=== PATIENT | female | born 1980 | race Hispanic/Latino ===

== ENCOUNTER 2017-12-28 09:46 | Inpatient (IN) | payer BC, SELFPAY ==
[2017-12-23 08:46] VITALS: BP 152/88; PULSE 89; RESP 16; TEMP 36.9; O2SAT 98; BMI 42.0
--- NOTE | 2017-12-23 09:18 | SDCEKG_ITS ---
Test Reason : Blood Pressure : / mmHG Vent. Rate : 083 BPM Atrial Rate : 083 BPM P-R Int : 156 ms QRS Dur : 086 ms QT Int : 348 ms P-R-T Axes : 042 077 039 degrees QTc Int : 408 ms Normal sinus rhythm Normal ECG Confirmed by ANDRÉS ORDONEZ ([id number]), magazine editor SILVANA SERVIN ([id number]) on 12/26/2017 2:16:12 PM Referred By: Jason Cruz Confirmed By:ANDRÉS ORDONEZ
[2017-12-23 10:10] LABS: Anion Gap 7 (5-15); BUN 15 mg/dL (7-18); BUN/Creat Ratio 22.3 RATIO (10-20); Calcium,Total 8.1 mg/dL (8.5-10.1); Chloride 105 mmol/L (98-107); Creatinine, Serum 0.67 mg/dL (0.55-1.02); EST Glomerular Filtration Rate 103 mL/min (>60); Est Glom Filt Rate - Afr Amer 125 mL/min (>60); Estimated Creatinine Clearance 93.25 ml/min; Glucose 79 mg/dL (74-106); Potassium 3.6 mmol/L (3.5-5.1); Sodium Level 138 mmol/L (136-145)
[2017-12-28] VITALS (8 sets, daily range): BP systolic 135–168; BP diastolic 70–108; PULSE 65–95; RESP 16–18; TEMP 36.4–37.4; O2SAT 92–98; BMI 42.0
--- NOTE | 2017-12-28 | SYN_PTH ---
PATIENT: KOLTON MORENO LOC: [facility]3 U#:[id number] AGE/SX: 37/F ROOM: GA322 RE12/28/[address]: Dr. Jason Cruz MD : 1980 BED: 1 DIS: 12/29/2017 SPEC #: [id number] RECD: 12/28/17 15:16 STATUS: HOMERO REBebeto #: [id number] JONATAN: 12/28/17 00:[address]: Jason Cruz DEPT: SURGICAL PATHOLOGY RECD BY: Jarret Mora ENTERED: 12/29/17 12:30 SP TYPE: SYNOVIUM DARI DR: MD Dr. Bandar Charles MD Tissues: Synovial tissue of joint, NOS Procedures: Surgery Specimen Level IV HEADER OPERATION: Right knee revision unicompartmental to total knee replacement PRE-OP DIAGNOSIS: Presence of right artificial knee, displaced fracture of medial condyle of right tibia TISSUE SUBMITTED: Right knee synovium MICROSCOPIC DIAGNOSIS Right knee synovium, and right knee revision: A fragment of fibroadipose tissue, skeletal muscle tissue, synovial tissue with chronic inflammation, histiocytic lesion, foreign body giant cell reaction, and calcifications. SHANIQUA:miguel 12/30/17 MICROSCOPIC DESCRIPTION Slides are reviewed. GROSS DESCRIPTION Received in fixative is one container labeled with the patient's name and designated synovium right knee. The specimen consists of an irregular fragment of jimenez-yellow soft tissue measuring 3.5 x 2 x 1.5 cm. Serial sections do not reveal mass lesions. Industrial Safety And Health Manager sections are submitted in 1 cassette. /AM:miguel 12/29/17 TC: 5 CPT:28977
[2017-12-28] MEDS: oxyCODONE HCl Cr 10 MG Tablet PO (10:23)
[2017-12-28] MEDS: Celecoxib 200 MG Capsule 400 MG PO (10:23)
[2017-12-28] MEDS: Acetaminophen 500 MG Tablet 1000 MG PO ×2 (10:23→21:10)
[2017-12-28] MEDS: Lactated Ringers 1,000 ML 999 ML IV ×2 (10:50→14:50)
[2017-12-28] MEDS: Scopolamine 1mg/72hr Patch 1 PATCH TD (11:10)
--- NOTE | 2017-12-28 11:45 | RAD_ITS ---
STUDY: X-RAY - RIGHT KNEE REASON FOR EXAM: Female, 37 years old. Postop knee replacement. TECHNIQUE: 2 view(s) of the knee. COMPARISON: None. Findings: There is a recent total knee arthroplasty. The femoral and tibial components appear in satisfactory position. The visualized femoral, tibial, and fibular shafts are unremarkable. There is soft tissue air consistent with the recent surgery. RAD/Knee 1 or 2 Views IMPRESSION: Satisfactory appearance of a total knee arthroplasty. Electronically Signed: Christophe Rome MD at 17:45 EST , Service support ,
[2017-12-28] MEDS: Cefazolin 2 GM in 0.9% Normal Saline 100 ML IV (11:49)
--- NOTE | 2017-12-28 14:20 | PCM.OPRPT ---
Report of Operation Date of Procedure: 12/28/17 Pre-Operative Diagnosis: FAILED right partial knee replacement. Medial tibial plateau fracture right knee Post-Operative Diagnosis: FAILED right partial knee replacement. Medial tibial plateau fracture right knee Surgery/Procedure Performed:: Revision right total knee replacement entire tibial and femoral component. ORIF right medial tibial plateau Description of Surgical Findings:: Well reduced medial tibial plateau fracture, stable knee with good patella tracking. Patella had good cartilage remaining and based on patient's age I elected to not resurface the patella. accounting file clerk: Ayad Vicente Type of Anesthesia:: Spinal Anesthesiologist: Hi Downs Special Medications: 2 g Ancef, 1 g TXA at incision, 1 g TXA closure, 10 mg Decadron, joint cocktail (5 mg Duramorph, 30 mL of 0.5% Ropivicaine, 1000 units of epinephrine, 30 mg of Toradol) Specimen's removed: 3 separate specimens were sent micrology Estimated Blood Loss (mL): 100 ml Fluids Replaced: 4000 mL crystalloid Description of Procedure: Implants used: 1. [place] posterior stabilized triathlon size 4 right distal femoral component 2. Tanner triathlon universal tibial baseplate size 4 with 12 x 50 mm stem and 5 mm augment medially 3. Tanner triathlon posterior stabilized X3 polyethylene 16 mm Brief history operative indications: 37-year-old female who had partial knee replacement 2 years ago. She had progressive pain over the summer with negative x-rays in May. She continued to have pain and swelling. She eventually presented to the emergency department where she noted to have a medial tibial plateau fracture and loosening of the tibial implant. She presented to my office with continued pain and inability to bear weight. At that point we discussed revision knee replacement including risks which include but were not limited to blood loss, DVTs, PEs, neurovascular damage, infection, the risk of anesthesia including loss of life. We also discussed high probability of multiple revisions in the future based on her age. Patient demonstrated understanding was able to sign informed consent. Procedure: On the date of procedure patient's right lower extremity was marked in the preoperative area. The patient was then taken back to the operating room where the patient was placed on the table in the supine position. All bony prominences were identified a well-padded. Anesthesia assumed control of the C-spine and airway and remained controlled throughout the remainder of the procedure. A tourniquet was placed on the right upper thigh and the leg was prepped in a sterile fashion. The surgeon then scrubbed at this time .Upon reentering the room right lower extremity was draped in a standard orthopedic fashion. A timeout was then called and everyone agreed upon the side, the site, the procedure to be performed, patient's identity and antibiotics given. An Esmarch bandage was used to exsanguinate the extremity and the tourniquet was placed up to 250 mmHg with the knee in flexion. A midline skin incision was made and sharp dissection was taken down through skin subcutaneous tissue and fat. The standard medial parapatellar incision was made and the patella was subluxed laterally. The standard deep MCL release was done and the fat pad was resected. At this time it was noted that the tibial plateau significantly displaced and the tibial component was loosened from the main shaft fragment of bone. We elected to proceed with an aggressive synovectomy based on the patient's synovitis from her rheumatoid disease. Suprapatellar synovium was sent for culture. Once the aggressive synovectomy was completed including the suprapatellar pouch medial lateral gutters we directed our attention to the reconstruction of the knee. Navigation pins were placed, navigation was registered on the femur with the goal of helping us with rotation after the femoral component was removed. Next our attention was directed to the femur where the distal femoral cutting block was pinned into place and 10 mm of distal femur resection was completed using the navigation for guide. The initial cut was made on the lateral condyle and around the femoral implant medially. We then used a osteotome to remove the distal femoral implant medially and finished our cut freshening it up. The knee was then placed in deep flexion in the standard [employer] rotation guide with navigation was used to pin the 4-in-[address]. A size 4 4-in-1 cutting block was selected. The anterior cut was then made and checked for notching. The subsequent anterior chamfer cuts, posterior condylar cuts and posterior chamfer cuts were made while ensuring the MCL and LCL were protected. Our attention was then turned to the tibia where the tibial component was removed from the medial tibial plateau fracture. Pointed reduction clamps were used to reduce the medial tibial plateau fracture. At this time to guidewires were placed and cannulated screws were placed in a trajectory which was anticipated to be around the tibial keel for the future tibial component. This adequately compress the fracture. At this time the extra medullary medullary tibial cutting guide was used to make the appropriate tibial cut 90 degrees from the mechanical axis. Based on the bone loss from the partial knee replacement a 5 mm augment was also planned medially this gave us a cleanup cut on the medial bone. A drop jose was then used to verify the cut. A size 4 tibial base plate was selected. the knee was flexed to 90 degrees and the soft tissues and posterior osteophytes were removed from the joint. The first portion of the articular injection was then administered in the posterior medial knee. Our attention was then turned back to the femur where the notch cutting guide was impacted in the appropriate position, and pinned into place. The chisel and saw were then used to complete the notch cut. Rogeur was used to remove any residual osteophytes. The appropriate trials were then placed on the femur and tibia. A trial polyethylene was trialed to ensure proper balancing and stability of the knee. Patella tracking, was then verified and corrected appropriately as needed. The appropriate tibial internal rotation was then marked with a bovie. Our attention was then directed to the patella. The patella was everted and found to have healthy bone. Based on the patient's young age of 37 years and good remaining cartilage as well as her x-rays that showed good joint space and patellofemoral joint elected to not resurface the patella. Patellar tracking was checked and deemed appropriate. Once we were happy lug holes were drilled for the femur and trial components were removed. the tibia was subluxed and pinned into place and the keel was punched and the canal was reamed. Final components were verified and opened, and cement was mixed in a vacuum. ThoughtSpot Simplex cement was used. The wound was copiously irrigated with normal saline, 6 L under low-pressure lavage. When the cement was ready the components were cemented into place starting with the tibia, femur and finally the patella. The trial poly component was placed and the knee was placed in full extension. All excess cement was removed in the process. Once the cement had cured the tracking, alignment and balance were verified and a size 16 polyethylene component was placed. Once the final components were placed the wound was copiously irrigated with normal saline solution and the remainder of the periarticular injection was given. The wound was closed in a layer vidal fashion using #1 vicryl interrupted sutures for the arthrotomy, 2-0 interrupted Vicryl for the subcuticular layer and te for final skin closure. A sterile compressive dressing was then placed. The patient was then awakened from anesthesia, transferred to the [facility] and transferred to the PACU for recovery. Post op plan DVT ppx: ASA 81mg BID, thigh high compression stockings Follow up: in office in 2 weeks for wound check PT: to start POD #0 at hospital, outpatient PT should be arranged. My physician learning and development assistant was a vital part of this case. He was important in appropriate retraction during the case, and protection of soft tissues during bony cuts. His intimate knowledge of the case and my steps aided in safe and expedient completion of the procedure as well as appropriate position of the leg during the case. He was also vital in assisting with closure under my direct supervision. Grafts/Implants Used: Tanner triathlon posterior stabilized - Complications None - Admit VTE Documentation VTE Present on Admission: No VTE Mechan Device Prophylaxis: SCD's, Thigh High SERENITY Hose VTE Pharm Prophylaxis ordered?: Yes
--- NOTE | 2017-12-28 14:33 | OP.PCM_ITS ---
Report of Operation Date of Procedure: 12/28/17 Pre-Operative Diagnosis: FAILED right partial knee replacement. Medial tibial plateau fracture right knee Post-Operative Diagnosis: FAILED right partial knee replacement. Medial tibial plateau fracture right knee Surgery/Procedure Performed:: Revision right total knee replacement entire tibial and femoral component. ORIF right medial tibial plateau Description of Surgical Findings:: Well reduced medial tibial plateau fracture, stable knee with good patella tracking. Patella had good cartilage remaining and based on patient's age I elected to not resurface the patella. school psychological examiner: Ayad Vicente Type of Anesthesia:: Spinal Anesthesiologist: Hi [employer]s Special Medications: 2 g Ancef, 1 g TXA at incision, 1 g TXA closure, 10 mg Decadron, joint cocktail (5 mg Duramorph, 30 mL of 0.5% Ropivicaine, 1000 units of epinephrine, 30 mg of Toradol) Specimen's removed: 3 separate specimens were sent micrology Estimated Blood Loss (mL): 100 ml Fluids Replaced: 4000 mL crystalloid Description of Procedure: Implants used: 1. [place] posterior stabilized triathlon size 4 right distal femoral component 2. Tanner triathlon universal tibial baseplate size 4 with 12 x 50 mm stem and 5 mm augment medially 3. Tanner triathlon posterior stabilized X3 polyethylene 16 mm Brief history operative indications: 37-year-old female who had partial knee replacement 2 years ago. She had pro gressive pain over the summer with negative x-rays in May. She continued to have pain and swelling. She eventually presented to the emergency department where she noted to have a medial tibial plateau fracture and loosening of the tibial implant. She presented to my office with continued pain and inability to bear weight. At that point we discussed revision knee replacement including risks which include but were not limited to blood loss, DVTs, PEs, neurovascular damage, infection, the risk of anesthesia including loss of life. We also discussed high probability of multiple revisions in the future based on her age. Patient demonstrated understanding was able to sign informed consent. Procedure: On the date of procedure patient's right lower extremity was marked in the preoperative area. The patient was then taken back to the operating room where the patient was placed on the table in the supine position. All bony prominences were identified a well-padded. Anesthesia assumed control of the C-spine and airway and remained controlled throughout the remainder of the procedure. A tourniquet was placed on the right upper thigh and the leg was prepped in a sterile fashion. The surgeon then scrubbed at this time .Upon reentering the room right lower extremity was draped in a standard orthopedic fashion. A timeout was then called and everyone agreed upon the side, the site, the procedure to be performed, patient's identity and antibiotics given. An Esmarch bandage was used to exsanguinate the extremity and the tourniquet was placed up to 250 mmHg with the knee in flexion. A midline skin incision was made and sharp dissection was taken down through skin subcutaneous tissue and fat. The standard medial parapatellar incision was made and the patella was subluxed laterally. The standard deep MCL release was done and the fat pad was resected. At this time it was noted that the tibial plateau significantly displaced and the tibial component was loosened from the main shaft fragment of bone. We elected to proceed with an aggressive synovectomy based on the patient's synovitis from her rheumatoid disease. Suprapatellar synovium was sent for culture. Once the aggressive synovectomy was completed including the suprapatellar pouch medial lateral gutters we directed our attention to the reconstruction of the knee. Navigation pins were placed, navigation was registered on the femur with the goal of helping us with rotation after the femoral component was removed. Next our attention was directed to the femur where the distal femoral cutting block was pinned into place and 10 mm of distal femur resection was completed using the navigation for guide. The initial cut was made on the lateral condyle and around the femoral implant medially. We then used a osteotome to remove the distal femoral implant medially and finished our cut freshening it up. The knee was then placed in deep flexion in the standard [employer] rotation guide with navigation was used to pin the 4-in-[address]. A size 4 4-in-1 cutting block was selected. The anterior cut was then made and checked for notching. The subsequent anterior chamfer cuts, posterior condylar cuts and posterior chamfer cuts were made while ensuring the MCL and LCL were protected. Our attention was then turned to the tibia where the tibial component was removed from the medial tibial plateau fracture. Pointed reduction clamps were used to reduce the medial tibial plateau fracture. At this time to guidewires were placed and cannulated screws were placed in a trajectory which was antici pated to be around the tibial keel for the future tibial component. This adequately compress the fracture. At this time the extra medullary medullary tibial cutting guide was used to make the appropriate tibial cut 90 degrees from the mechanical axis. Based on the bone loss from the partial knee replacement a 5 mm augment was also planned medially this gave us a cleanup cut on the medial bone. A drop jose was then used to verify the cut. A size 4 tibial base plate was selected. the knee was flexed to 90 degrees and the soft tissues and posterior osteophytes were removed from the joint. The first portion of the articular injection was then administered in the posterior medial knee. Our attention was then turned back to the femur where the notch cutting guide was impacted in the appropriate position, and pinned into place. The chisel and saw were then used to complete the notch cut. Rogeur was used to remove any residual osteophytes. The appropriate trials were then placed on the femur and tibia. A trial polyethylene was trialed to ensure proper balancing and stability of the knee. Patella tracking, was then verified and corrected appropriately as needed. The appropriate tibial internal rotation was then marked with a bovie. Our attention was then directed to the patella. The patella was everted and found to have healthy bone. Based on the patient's young age of 37 years and good remaining cartilage as well as her x-rays that showed good joint space and patellofemoral joint elected to not resurface the patella. Patellar tracking was checked and deemed appropriate. Once we were happy lug holes were drilled for the femur and trial components were removed. the tibia was subluxed and pinned into place and the keel was punched and the canal was reamed. Final components were verified and opened, and cement was mixed in a vacuum. [employer] Simplex cement was used. The wound was copiously irrigated with normal saline, 6 L under low-pressure lavage. When the cement was ready the components were cemented into place starting with the tibia, femur and finally the patella. The trial poly component was placed and the knee was placed in full extension. All excess cement was removed in the process. Once the cement had cured the tracking, alignment and balance were verified and a size 16 polyethylene component was placed. Once the final components were placed the wound was copiously irrigated with normal saline solution and the remainder of the periarticular injection was given. The wound was closed in a layer vidal fashion using #1 vicryl interrupted sutures for the arthrotomy, 2-0 interrupted Vicryl for the subcuticular layer and te for final skin closure. A sterile compressive dressing was then placed. The patient was then awakened from anesthesia, transferred to the [facility] and transferred to the PACU for recovery. Post op plan DVT ppx: ASA 81mg BID, thigh high compression stockings Follow up: in office in 2 weeks for wound check PT: to start POD #0 at hospital, outpatient PT should be arranged. My physician communication assistant was a vital part of this case. He was important in appropriate retraction during the case, and protection of soft tissues during bony cuts. His intimate knowledge of the case and my steps aided in safe and expedient completion of the procedure as well as appropriate position of the leg during the case. He was also vital in assisting with closure under my direct supervision. Grafts/Implants Used: Tanner triathlon posterior stabilized - Complications None - Admit VTE Documentation VTE Present on Admission: No VTE Mechan Device Prophylaxis: SCD's, Thigh High SERENITY Hose VTE Pharm Prophylaxis ordered?: Yes
--- NOTE | 2017-12-28 16:34 | PCM.PROGNOTE ---
<Christiana Alejandre - Last Filed: 12/28/17 16:52> Subjective: Patient seen and examined. Working with physical therapy. Denies significant pain. No other current complaints. Hospitalist consulted for medical management. Patient reports a medical history of lupus. Denies other chronic medical history. - Physical Exam General: Alert, Oriented x3, Cooperative HEENT: Atraumatic, PERRLA, EOMI, Normocephalic Neck: Supple, No JVD, Negative Carotid Bruits Lungs: Clear to auscultation, Normal air movement Cardiovascular: Regular rate, Regular Rhythm, Normal S1, Normal S2, No murmurs Abdomen: Bowel Sounds Present, Soft, Non Tender, Non-Distended, Obese Extremities: No clubbing, No cyanosis, No edema, Capillary Refill Less than 3 Seconds Skin: No rashes, No breakdown, - - Right knee post-op dressing intact. Musculoskeletal: Tenderness - Right knee Neurological: Cranial nerves II-XII grossly intact, Neuro grossly intact Psych/Mental Status: Normal Affect, Appropriate Vital Signs Temp Pulse Resp BP Pulse Ox 98.2 F 95 18 149/79 H 95 12/28/17 16:07 12/28/17 16:07 12/28/17 16:07 12/28/17 16:07 12/28/17 16:07 Oxygen Flow Rate (L/min) 2 Oxygen Delivery Method Room Air Weight: 240 lb Body Mass Index (BMI) 42.0 Intake and Output for Last 24 Hours 12/26/17 12/27/17 12/28/17 23:59 23:59 23:59 Intake Total 3700 / 3700 Balance 3700 / 3700 Medical Necessity - Tobacco Use Smoking Status: Current every day smoker Assessment/Plan 1. Status post revision right total knee replacement/ORIF right medial tibial plateau-management per ortho. PRN pain regimen. Knee tissue pathology pending. PT/OT. 2. Elevated blood pressure- could be due to pain, 2/2 #1. PRN hydralazine for SBP >160. Add oral agent if BP remains elevated. 3. Lupus- continue home medications. 4. Obesity-encourage diet lifestyle modifications. DVT prophylaxis-aspirin 81 mg twice daily. This patient was seen by DARWIN Jones under the supervision of Dr. Uriostegui. <Agnieszka Uriostegui - Last Filed: 12/28/17 17:24> - Physical Exam Vital Signs Temp Pulse Resp BP Pulse Ox 98.2 F 95 18 149/79 H 95 12/28/17 16:07 12/28/17 16:07 12/28/17 16:07 12/28/17 16:07 12/28/17 16:07 Oxygen Flow Rate (L/min) 2 Oxygen Delivery Method Room Air Weight: 108.862 kg Body Mass Index (BMI) 42.0 Intake and Output for Last 24 Hours 12/26/17 12/27/17 12/28/17 23:59 23:59 23:59 Intake Total 3700 / 3700 Balance 3700 / 3700 Assessment/Plan This patient was seen in conjunction with Christiana Alejandre NP. I have independently interviewed and examined the patient and reviewed pertinent historical, laboratory, and other data. Please refer to her note for patient's presentation, findings, and recommendations. 37-year-old female with past medical history of SLE, follows up with spin table operator in the outpatient, history of right knee replacement comes in for a revision of the right knee. Patient is postop day #0 status post procedure. Her pain is now well controlled at the moment. She is due for pain medications. She otherwise denies any fever or chills or dizziness or chest pain or shortness of breath. Physical Exam: Vitals were reviewed -blood pressure slightly uncontrolled Gen: Looks in some discomfort, not pale, not jaundiced, alert oriented x3, sitting up in the chair CVS:HS I +II, regular, no murmurs RESP: Clinically clear to auscultation GI:BS present, soft, nontender, palpable organs EXT: Cooling mat over the right knee Labs reviewed: ASSESSMENT: 1. Postop day #0 status post revision of right total knee replacement 2. Elevated blood pressure likely secondary to uncontrolled pain 3. SLE 4. Obesity, diet and exercises recommended Meds reviewed Plan: Continue per orthopedic recommendations, Pain control Monitor blood pressure for now PRN hydralazine DVT prophylaxis per orthopedics recommendations Code Visit Inpatient E&M: 24190 Init Hosp L2
[2017-12-28] MEDS: Aspirin 81 MG TAB.CHEW PO (17:05)
[2017-12-28] MEDS: Gabapentin 100 MG Capsule 200 MG PO (17:05)
[2017-12-28] MEDS: Gabapentin 300 MG Capsule PO (17:05)
[2017-12-28] MEDS: oxyCODONE 5 MG Tablet PO ×2 (18:08→22:49)
[2017-12-28] MEDS: Cefazolin 1 GM/50 ML BAG IV (20:08)
[2017-12-28] MEDS: Mycophenolate Mofetil 250 MG Capsule 1000 MG PO (21:10)
[2017-12-28] MEDS: Senna/Docusate Sodium 1 Tablet 2 TABLET PO (21:10)
[2017-12-28] MEDS: Doxycycline 100 MG CAPSULE PO (21:10)
[2017-12-29 02:00] VITALS: BP 136/85; PULSE 87; RESP 18; TEMP 36.4; O2SAT 96
[2017-12-29] MEDS: oxyCODONE 5 MG Tablet PO ×4 (02:36→16:36)
[2017-12-29] MEDS: Cefazolin 1 GM/50 ML BAG IV (04:31)
[2017-12-29] MEDS: Ondansetron 4 MG/2 ML Vial IV (05:14)
[2017-12-29 06:26] LABS: Hematocrit 34.9 % (37-47); Hemoglobin 11.2 g/dl (12.0-15.0); Mean Corp Hgb Conc 32.1 g/gl (32-36); Mean Corpuscular Hgb 31.5 pg (27.0-32.0); Mean Corpuscular Volume 98.3 fL (81-99); Mean Platelet Vol. 8.9 fl (6.2-12.0); Platelet Count 270 K/mm3 (150-450); RBC Distribution Width CV 12.8 % (11.6-14.6); RBC Distribution Width SD 44.9 fl (35.1-43.9); Red Blood Count 3.55 M/mm3 (4.2-5.4); White Blood Count 13.4 K/mm3 (4.4-11.0)
[2017-12-29 06:29] LABS: Scan Indicated on CBC? Y/N NO
[2017-12-29] MEDS: Acetaminophen 500 MG Tablet 1000 MG PO ×2 (06:33→14:24)
[2017-12-29 06:34] LABS: Anion Gap 10 (5-15); BUN 11 mg/dL (7-18); BUN/Creat Ratio 16.8 RATIO (10-20); Calcium,Total 7.8 mg/dL (8.5-10.1); Chloride 108 mmol/L (98-107); Creatinine, Serum 0.65 mg/dL (0.55-1.02); EST Glomerular Filtration Rate 107 mL/min (>60); Est Glom Filt Rate - Afr Amer 129 mL/min (>60); Estimated Creatinine Clearance 96.12 ml/min; Glucose 96 mg/dL (74-106); Potassium 3.9 mmol/L (3.5-5.1); Sodium Level 142 mmol/L (136-145)
[2017-12-29 07:50] VITALS: O2SAT 95
[2017-12-29 08:20] VITALS: BP 143/75; PULSE 96; RESP 18; TEMP 37.2; O2SAT 94
[2017-12-29] MEDS: Mycophenolate Mofetil 250 MG Capsule 1000 MG PO (08:32)
[2017-12-29] MEDS: Morphine 2 MG/ML Syringe IV (08:32)
[2017-12-29] MEDS: Senna/Docusate Sodium 1 Tablet 2 TABLET PO (08:33)
[2017-12-29] MEDS: Gabapentin 100 MG Capsule 200 MG PO ×2 (08:33→16:37)
[2017-12-29] MEDS: Doxycycline 100 MG CAPSULE PO (08:34)
[2017-12-29] MEDS: Gabapentin 300 MG Capsule PO ×2 (08:34→16:37)
[2017-12-29] MEDS: Aspirin 81 MG TAB.CHEW PO ×2 (08:34→16:38)
[2017-12-29] MEDS: Famotidine 20 MG Tablet PO (08:34)
--- NOTE | 2017-12-29 09:40 | PCM.PN.ORT ---
Subjective: The patient was sitting in bedside chair upon examination. Patient denies any chest pain, shortness of breath, dizziness, lightheadedness, nausea or vomiting, or calf pain. Patient states the pain medications are given her relief for approximately 1 hour. No adverse overnight events. Patient is wishing to go home today. We will adjust pain medications and if pain is controlled and plan will be for possible discharge home today.. Objective: Vital signs stable and afebrile. Patient is able to plantarflex and dorsiflex actively. Sensation is intact to light touch to saphenous, sural, superficial and deep peroneal, and tibial distribution. Dressings is clean dry and intact. Negative Homans bilaterally, negative signs and symptoms of DVT. - Physical Exam General: Alert, Oriented x3, Cooperative, No apparent distress Vital Signs Temp Pulse Resp BP Pulse Ox 98.9 F 96 18 143/75 H 94 12/29/17 08:20 12/29/17 08:20 12/29/17 08:20 12/29/17 08:20 12/29/17 08:20 Oxygen Flow Rate (L/min) 2 Oxygen Delivery Method Room Air Weight: 108.862 kg Body Mass Index (BMI) 42.0 Intake and Output for Last 24 Hours 12/27/17 12/28/17 12/29/17 23:59 23:59 23:59 Intake Total 4450 / 4450 1460 / 1460 Output Total 2 / 2 Balance 4448 / 4448 1460 / 1460 Microbiology Past 72 Hours 12/28/17 Unknown Gram Stain - Final Tissue - Knee 12/28/17 Unknown Gram Stain - Final Tissue - Knee 12/28/17 Unknown Gram Stain - Final Tissue - Knee Laboratory Tests Past 24 Hrs 12/29/17 12/29/17 05:48 05:48 WBC 13.4 H RBC 3.55 L Hgb 11.2 L Hct 34.9 L MCV 98.3 MCH 31.5 MCHC 32.1 RDW 12.8 RDW Differential 44.9 H Plt Count 270 MPV 8.9 Sodium 142 Potassium 3.9 Chloride 108 H Carbon Dioxide 24.0 Anion Gap 10 BUN 11 Creatinine 0.65 Estim Creat Clear Calc 96.12 Est GFR (MDRD) Af Amer 129 Est GFR (MDRD) Non-Af 107 BUN/Creatinine Ratio 16.8 Glucose 96 Calcium 7.8 L Medical Necessity - Tobacco Use Smoking Status: Current every day smoker Assessment/Plan 1. S/P revision right total knee arthroplasty with open reduction internal fixation right medial tibial plateau fracture POD #1 2. Continue Pain Medications: Tylenol and OxyIR, MS Contin will be added for 4 days postoperatively. 3. DVT Prophylaxis: Aspirin 81 mg twice daily for 4 weeks postoperatively 4. PT/OT: Patient will be touchdown weightbearing for 2 weeks followed by partial weightbearing 50% for an additional 4 weeks. 5. H & H: 11.2/34.9, asymptomatic 6. Leukocytosis: Currently 13.4, afebrile. Patient did receive Decadron intraoperatively 7. Continue postoperative medical management per medicine 8. Encouraged Incentive Spirometry 9. Disposition: Plan will be for possible discharge home this afternoon if pain is controlled and patient tolerates physical therapy. Prescriptions will be attached to chart. Patient will follow-up per postop instructions.
[2017-12-29] MEDS: morphine SR 15 MG Tablet PO (09:58)
--- NOTE | 2017-12-29 10:34 | PN_ITS ---
Subjective: Chief complaint: Follow-up after consultation for postoperative medical management. Patient seen and examined. No acute events overnight. She still complaining of right knee pain, rated about 7-8 out of 10 in severity. She denied headache or blurred vision. No chest pain or shortness of breath. This morning, her vitals are stable, blood pressure improved. - Physical Exam General: Alert, Oriented x3, Cooperative, No apparent distress HEENT: Atraumatic, PERRLA, EOMI, Normocephalic Oral: Moist Mucosa, No Gingival or Mucosal Lesions/ Ulcerations Neck: Supple, No JVD, Negative Carotid Bruits, Trachea Midline, Thyroid Normal S ize and Texture Lungs: Clear to auscultation, Normal air movement, No rhonchi, No wheeze, No rales Cardiovascular: Regular rate, Regular Rhythm, Normal S1, Normal S2, PMI Normal Abdomen: Bowel Sounds Present, Soft, Non Tender, Non-Distended, No Hepato- splenomegaly, Obese Extremities: No clubbing, No cyanosis, No edema Skin: No rashes, No breakdown Lymphatic: No Cervical, Supraclavicular, or Inguinal Adenopathy Neurological: Cranial nerves II-XII grossly intact, Motor Exam 5/5 strength throughout Psych/Mental Status: Normal Affect, Appropriate, Alert and oriented to time, place, person, mood and affect Vital Signs Temp Pulse Resp BP Pulse Ox 98.9 F 96 18 143/75 H 94 12/29/17 08:20 12/29/17 08:20 12/29/17 08:20 12/29/17 08:20 12/29/17 08:20 Oxygen Flow Rate (L/min) 2 Oxygen Delivery Method Room Air Weight: 240 lb Body Mass Index (BMI) 42.0 Intake and Output for Last 24 Hours 12/27/17 12/28/17 12/29/17 23:59 23:59 23:59 Intake Total 4450 / 4450 1460 / 1460 Output Total 2 / 2 Balance 4448 / 4448 1460 / 1460 Microbiology Past 72 Hours 12/28/17 Unknown Gram Stain - Final Tissue - Knee 12/28/17 Unknown Gram Stain - Final Tissue - Knee 12/28/17 Unknown Gram Stain - Final Tissue - Knee Laboratory Tests Past 24 Hrs 12/29/17 12/29/17 05:48 05:48 WBC 13.4 H RBC 3.55 L Hgb 11.2 L Hct 34.9 L MCV 98.3 MCH 31.5 MCHC 32.1 RDW 12.8 RDW Differential 44.9 H Plt Count 270 MPV 8.9 Sodium 142 Potassium 3.9 Chloride 108 H Carbon Dioxide 24.0 Anion Gap 10 BUN 11 Creatinine 0.65 Estim Creat Clear Calc 96.12 Est GFR (MDRD) Af Amer 129 Est GFR (MDRD) Non-Af 107 BUN/Creatinine Ratio 16.8 Glucose 96 Calcium 7.8 L Medical Necessity - Tobacco Use Smoking Status: Current every day smoker Tobacco Use: Cigarettes Assessment/Plan This is a 57 years old female patient admitted for elective revision of right total knee replacement after medial tibial plateau fracture and I am seeing this patient in consultation for postoperative medical management. #1 status post revision of right total knee replacement: This was done for medial tibial plateau fracture, status post open reduction and internal fixation of right medial tibial plateau, postoperative day 1. Patient is having significant pain, 7-8 oxygen severity. She is on Toradol, OxyIR and MS Contin as needed for pain. Blood pressure improved compared to yesterday, other vital signs are stable. Routine blood work was remarkable for mild leukocytosis, likely reactive. Orthopedic surgery is managing. #2 elevated blood pressure: Without history of hypertension. This likely because of right knee pain. She is on IV hydralazine just as needed. Her blood pressure improved. #3 SLE: Stable, no acute issues. Continue Plaquenil, CellCept and Neurontin. #4 DVT prophylaxis: SCDs. This note was generated with [employer] dictation software. It may contain incorrect words, spelling, and punctuation that were not noted in checking the note before signing. Code Visit Inpatient E&M: 70290 Subs Hosp L2
[2017-12-29] MEDS: Ketorolac 15 MG/ML Vial IV (11:47)
--- NOTE | 2017-12-29 14:15 | CASEMGMT ---
RN KEILY Face to Face with patient for initial transition planning/care coordination assessment. RN CM introduced self and role at [facility]. Patient sitting in chair, alert and oriented. Patient willing to participate in assessment and is able to answer all questions appropriately. Care providers, pharmacy, and demographics verified. Patient wishes to discharge home and is setup with [facility] for outpatient therapy. Patient states she has no further needs or concerns at this time. CM to follow for discharge planning needs that may arise. PCP: Gita Specialists: Teller Coordinator Preferred Pharmacy: [facility] Insurance: [employer] Prescription Benefit: [employer] Living Will/HPOA: None, declined LNOK: Patient has 4 kids ranging in age from 12-20 Living Arrangements: Patient lives with children in 1 story house. Transportation: Kids, sister, self DME/HHC: Patient has cruthes and walker. Disposition Plan: Patient to discharge home with outpatient therapy, family support, and follow-up plans in place. Amalia HOLLAND, RN, CM
[2017-12-29 14:20] VITALS: BP 157/83; PULSE 99; RESP 18; TEMP 37.4; O2SAT 94
[2017-12-29] MEDS: Hydroxychloroquine 200 MG Tablet PO (16:38)
== END 2017-12-29 17:22 | disposition home or self-care (01) | DRG 467 ==
LOC: MS3 09:47
PROVIDERS: Anesthesiology; Admitting Provider Specialist; Family Provider Family Medicine; PCP Family Medicine; Referring Provider Specialist; Visit Provider Specialist
PROC: 0SPC0JZ Removal of Synthetic Substitute from Right Knee Joint, Open Approach (ICD-10-PCS; CPT 27447; principal; 2017-12-28 13:35)
DX: S82.141A Displaced bicondylar fracture of right tibia, initial encounter for closed fracture (principal); T84.032A Mechanical loosening of internal right knee prosthetic joint, initial encounter; Z68.41 Body mass index [BMI] 40.0-44.9, adult; E66.9 Obesity, unspecified; M32.9 Systemic lupus erythematosus, unspecified; Z96.651 Presence of right artificial knee joint; F17.210 Nicotine dependence, cigarettes, uncomplicated; Z23 Encounter for immunization
CPT/HCPCS: 36415; 73560; 80048; 85027; 87015; 87070; 87075; 87081; 87102; 87116; 87205; 87206; 88305; 93005; 97110; 97161; 97165; 97530; 97802; 99251; 99406; C1713; C1776; J7120; 90686; G0463; J2405

== ENCOUNTER → 2020-04-11 10:11 | Outpatient (CLI) | payer BC, SELFPAY ==
[2017-12-28 16:07] VITALS: BMI 42.0
--- NOTE | 2020-04-11 10:14 | ART_ITS ---
Reason For Study: LEFT FOOT/ANKLE PAIN Procedure A bilateral lower extremity continuous wave Doppler with analog waveform analysis,segmental pressures,and ankle brachial indexes without exercise. Left Segmental Pressures Left brachial= 140mmHg. Left posterior tibial artery = 165mmHg. Left dorsalis pedis artery = 156mmHg. The left dorsalis pedis waveforms are triphasic. The left posterior tibial artery waveforms are triphasic. Right Segmental Pressures Right brachial= 136mmHg. Right posterior tibial artery = 165mmHg. Right dorsalis pedis artery = 150mmHg. The right dorsalis pedis waveforms are triphasic. The right posterior tibial artery waveforms are triphasic. Indices The right resting ankle brachial index is 1.21. The right ankle brachial index by the dorsalis pedis is 1.10. The right ankle brachial index by the posterior tibial artery is 1.21. The left resting ankle brachial index is 1.21. The left ankle brachial index by the dorsalis pedis is 1.15. The left ankle brachial index by the posterior tibial artery is 1.21. Interpretation Summary Triphasic Doppler waveforms are noted at ankle level bilaterally. Pulse-volume recordings appear satisfactory at all levels bilaterally, including low-thigh, calf,and ankle levels. Resting ankle- brachial indices are normal bilaterally. There is no evidence of significant arterial occlusive disease in the lower extremities bilaterally. Ordering Physician: Breezy Ayala Referring Physician: Breezy Ayala Performed By: Priscilla Owen RVT, RDCS
== END ==
LOC: CVS 10:13
PROVIDERS: PCP Family Medicine; Referring Provider Podiatrist Foot & Ankle Surgery; Visit Provider Podiatrist Foot & Ankle Surgery
DX: M25.572 Pain in left ankle and joints of left foot (principal)
CPT/HCPCS: 93923